=== PATIENT | female | born 2000 | race Caucasian/White ===

== ENCOUNTER 2022-01-09 18:12 | Inpatient (IN) | payer OTHER ==
[~2022-01-09] VITALS: Ht 162.6 cm; Wt 70.3 kg
[~2022-01-09 18:12] MED LIST: PRETAB PO
[2022-01-09 18:17] VITALS: BP 114/64
--- NOTE | 2022-01-09 18:35 | NUR ---
PT WHEELCHAIR ASSISTED TO BED 5
--- NOTE | 2022-01-09 18:50 | NUR ---
21YO FEMALE PT C/O BREAST , SHARP LOWER ABDOMINAL , R FLANK AND R SHOULDER PAIN X8AM TODAY. STATES PAIN AT MOST ON MOVEMENT OR WHEN DEEP BREATHING. REPORTS GIVING 2DAYS AGO BY C SECTION. PRESENTS WITH SCAR BELOW ABDOMEN, TENDER TO TOUCH. NO SIGN OF INFECTION NOTED. NO VISIBLE INJURY NOTED IN SHOULDER. BREAST PRESENT WITH MILD SWELLING, FIRM AND TENDER TO TOUCH. STATES LAST BREAST FEED WAS LAST NIGHT. MILD RELIEF AFTER TAKING IBUPROFEN TAKEN 1HR PRIOR TO ARRIVAL. DENIES N/V/D,CHEST PAIN OR SOB. REPORTS MILD VAG BLEEDING. PT AAOX4, HOB POSITIONED PER COMFORT. BED AT LOWEST POSITION, BED RAILS UPX1. HX:DENIES ALLERGIES: PENICILLIN
--- NOTE | 2022-01-09 19:44 | NUR ---
REPORT GIVEN TO JERMAINE DIAS. ALL QUESTIONS ANSWERED. TRANSFER OF CARE AT THIS TIME
[2022-01-09] MEDS ORDERED: cefTRIAXone 1,000 MG in DEXT 5% MINI-BAG PLUS 50 ML IV ONE (20:20)
[2022-01-09] MEDS ORDERED: NACL 0.9% 2,000 ML IV SCH (20:20)
--- NOTE | 2022-01-09 20:27 | NUR ---
RADIOLOGY AT BEDSIDE
[2022-01-09 20:35] LABS: BASOPHILS % (AUTO) 0.1 % (0.0-2.0); EOSINOPHILS # (AUTO) 0.1 K/uL (0-0.4); EOSINOPHILS % (AUTO) 0.4 % (0.0-4.0); HEMATOCRIT 29.7 % (36-48); HEMOGLOBIN 9.4 g/dL (12.0-16.0); LYMPHOCYTES # (AUTO) 1.2 K/uL (2.5-16.5); LYMPHOCYTES % (AUTO) 8.5 % (20.5-51.1); MEAN CORPUSCULAR HEMOGLOBIN 25 pg (27-31); MEAN CORPUSCULAR HGB CONC 32 g/dL (33-37); MEAN CORPUSCULAR VOLUME 78.2 fL (80-94); MONOCYTES # (AUTO) 1.3 K/uL (0.8-1.0); MONOCYTES % (AUTO) 8.8 % (1.7-9.3); NEUTROPHILS # (AUTO) 11.8 K/uL (1.8-7.7); NEUTROPHILS % (AUTO) 82.2 % (42.2-75.2); PLATELET COUNT (AUTO) 276 K/uL (140-450); RED CELL DISTRIBUTION WIDTH 15.6 % (11.6-13.7); WHITE BLOOD COUNT (AUTO) 14.4 K/uL (4.5-11.0)
[2022-01-09] MEDS ORDERED: cefTRIAXone 1,000 MG VIAL ONE (20:48)
[2022-01-09 20:54] LABS: ALBUMIN 2.2 g/dL (3.4-5.0); ASPARTATE AMINOTRANSFERASE 28 U/L (15-37); CARBON DIOXIDE 24.5 mmol/L (21-32); CHLORIDE 106 mmol/L (98-107); CREATININE 0.6 mg/dL (0.6-1.3); GFR ARICAN-AMERICAN 164 mL/min (>90); GLUCOSE 93 mg/dL (74-106); POTASSIUM 3.5 mmol/L (3.5-5.1); SODIUM SERUM 141 mmol/L (136-145); TOTAL BILIRUBIN 0.3 mg/dL (0.0-1.0); UREA NITROGEN, BLOOD 7 mg/dL (7-18)
--- NOTE | 2022-01-09 22:51 | NUR ---
ERICH SWAB OBTAINED AND SENT TO LAB
[2022-01-09] MEDS ORDERED: metroNIDAZOLE 500 MG/NS PREMIX 100 ML IV ONE (23:30)
[2022-01-09] MEDS ORDERED: DOXYCYCLINE 100 MG in DEXTROSE 5% 100 ML IV ONE (23:30)
--- NOTE | 2022-01-09 23:57 | NUR ---
AWAKE, AMBULATED TO BR. IS ANXIOUS RE: ADMISSION
[2022-01-10] MEDS ORDERED: MORPHINE SULFATE 2 MG/ML SYR IVP PRN
[2022-01-10] MEDS ORDERED: HYDROcodone/APAP 5/325 MG 1 TAB TAB PO PRN
[2022-01-10] MEDS ORDERED: ONDANSETRON 4 MG/2 ML VIAL IVP PRN
[2022-01-10] MEDS ORDERED: ACETAMINOPHEN 325 MG TAB PO PRN
[2022-01-10] MEDS ORDERED: DOXYCYCLINE 100 MG VIAL IV ONE ×2 (00:03→12:02)
[2022-01-10] MEDS ORDERED: IBUP-2213 PO (00:20)
--- NOTE | 2022-01-10 00:20 | NUR ---
PERSONAL BELONGINGS AND MED RECONCILE COMPLETED
[2022-01-10] MEDS: NACL 0.9% 1,000 ML IV SCH ×2 (00:46→12:41)
--- NOTE | 2022-01-10 01:50 | NUR ---
C/O PAIN, MEDICATED ORDERED
--- NOTE | 2022-01-10 04:00 | NUR ---
RESTING IN BED WITH EYES CLOSED, RESPIRATIONS REGULAR AND UNLABORED
--- NOTE | 2022-01-10 06:43 | NUR ---
CONTACTED CASE MANAGMENT ([facility]) [phone] INQUIRED ON GETTING A BREAST PUMP FOR PT. NEED TO CALL AFTER 7AM. PT IS 2 DAYS POST PART, IS ACTIVELY BREAST FEEDING. NO BREAST PUMPS ARE AVAIL IN L&D DEPT OR [facility]ST.
--- NOTE | 2022-01-10 07:20 | NUR ---
Recieved report from ARUN Jordan for transfer of care.
--- NOTE | 2022-01-10 07:39 | NUR ---
Spoke to Case Management ([facility]) and was told that insurance does not provide breast pumps and to call [facility] [phone] Fax#: [phone] and ask if they deliver or carry breast pumps. Was advised to inform patient to buy a simple breast pump and get it reimbursed through her insurance.
--- NOTE | 2022-01-10 08:09 | NUR ---
Breakfast tray handed to patient.
[2022-01-10] MEDS: metroNIDAZOLE 500 MG/NS PREMIX 100 ML IV SCH ×2 (08:23→16:00)
--- NOTE | 2022-01-10 08:53 | NUR ---
L&D at bedside allowing patient to use breast pump.
[2022-01-10] MEDS ORDERED: ENOXAPARIN 40 MG/0.4 ML SYR SUBQ SCH (09:00)
--- NOTE | 2022-01-10 11:47 | NUR ---
Patient is attempting to pump. All needs met by staff.
[2022-01-10] MEDS ORDERED: DOXYCYCLINE 100 MG in DEXTROSE 5% 100 ML IV SCH (12:00)
--- NOTE | 2022-01-10 12:15 | NUR ---
Patient ambulated to restroom with steady gait.
--- NOTE | 2022-01-10 12:36 | NUR ---
Dr. Poon, admitting doctor, evaluating patient at bedside.
[2022-01-10] MEDS ORDERED: DOXY-690 PO (12:44)
[2022-01-10] MEDS ORDERED: METR-435 PO (12:47)
[2022-01-10 13:11] LABS: APPEARANCE,URINE CLEAR (CLEAR); BILIRUBIN,URINE NEGATIVE (NEGATIVE); BLOOD, URINE 2+ (NEGATIVE); COLOR,URINE YELLOW (YELLOW); LEUKOCYTE ESTERASE ,URINE NEGATIVE (NEGATIVE); NITRITE, URINE NEGATIVE (NEGATIVE); UGLUCOSE NEGATIVE (NEGATIVE)
[2022-01-10 13:33] LABS: OTHER CASTS, URINE None Seen /LPF (None Seen); WBC,URINE 0-5 /HPF (0-5)
--- NOTE | 2022-01-10 14:21 | NUR ---
Dr. Grayson will see patient at his clinic. Advised for patient to pump and dump and not to breastfed current milk until she is seen by him. If patient decides not to breastfeed to ice the breasts. Patient was informed of Dr. Choi advise.
--- NOTE | 2022-01-10 16:00 | NUR ---
Patient discharged with v/s stable. Written and verbal after care instructions given. Patient alert, oriented and verbalized understanding of instructions. Ambulatory with steady gait. All questions addressed prior to discharge. ID band removed. Patient advised to follow up with PMD. Opportunity to ask questions provided and answered.
[2022-01-10 16:12] VITALS: BP 120/74
--- NOTE | 2022-01-10 16:34 | NUR ---
The patient's care was reviewed and supervised by Stephy Bruce, RN, RN.
== END 2022-01-10 16:12 | disposition home or self-care (01) | DRG 561 ==
LOC: MED 18:12 → MMU 01-10 00:07
PROVIDERS: ADMIT Hospitalist; ATTEND Hospitalist
DX: O86.12 Endometritis following delivery (principal); D64.9 Anemia, unspecified; O99.13 Other diseases of the blood and blood-forming organs and certain disorders involving the immune mechanism complicating the puerperium; O90.81 Anemia of the puerperium; D72.829 Elevated white blood cell count, unspecified; Z20.822 Contact with and (suspected) exposure to COVID-19; Z88.0 Allergy status to penicillin; Z79.899 Other long term (current) drug therapy; Z98.891 History of uterine scar from previous surgery
CPT/HCPCS: 36415; 71045; 76856; 80053; 81001; 83605; 84484; 85025; 87040; 87086; 93005; 96365; 96375; 99291; J0696; J1650; J2270; J3490; J7060; Q0092